=== PATIENT | female | born 1950 | race Caucasian/White ===

== ENCOUNTER 2018-08-13 07:01 | Outpatient (CLI) | payer OTHER ==
[2018-08-13 07:45] LABS: eGFR (Non-African) > 60
--- NOTE | 2018-09-30 07:18 | Diagnostic Imaging Report ---
[facility] [id number] [id number] Report Submission Date: August 13, 2018 9:32:59 PM CDT Patient Study Name: ALLYSON RODRÍGUEZ Date: August 13, 2018 12:00:00 AM CDT Modality Type: DEXA Gender: F Description: DEXA : 48 Institution: [facility] Physician: RIDGE DHILLON Examination: Bone density History: Assess bone mineralization Comparison exams: None available Technique: DEXA protocol Findings: Average bone mineral density from L1 through L4: 1.054 grams cm2. T score: -1.1 Average bone mineral density of the left femoral neck: 0.640 grams cm2. T score: -2.9 Average bone mineral density of the right femoral neck: 0.635 grams cm2. T score: -2.9 Impression: Lumbar spine osteopenia Bilateral hip osteoporosis Electronically signed on August 13, 2018 9:32:59 PM CDT by: Roger SIMPSON
== END 2018-08-13 07:25 ==
LOC: RAD 07:01
PROVIDERS: ATTEND Family Medicine
DX: Z78.0 Asymptomatic menopausal state (principal); Z13.220 Encounter for screening for lipoid disorders
CPT/HCPCS: 36415; 77080; 80053; 80061